=== PATIENT | female | born 1985 | race Two or more races ===

== ENCOUNTER 2018-10-02 01:25 | Emergency (ER) | payer BC, OTHER ==
[~2018-10-02] VITALS: Ht 162.6 cm; Wt 50.8 kg
[2018-10-02] MEDS ORDERED: FLUCONAZOLE 100 MG TAB PO ONE ×3 (01:45→01:59)
[2018-10-02 02:23] LABS: Basophils # (auto) 0.1 uL; Basophils % (auto) 0.7 % (0.0-2.0); Eosinophils # (auto) 0.1 uL; Hemoglobin 14.8 g/dL (12.2-16.2); Lymphocytes # (auto) 2.3 uL; White Blood Cell 12.4 10^3/uL (4.4-10.8)
[2018-10-02 02:25] LABS: Hematocrit 44.9 % (36.0-46.0); Lymphocytes % (auto) 18.7 % (10.0-50.0); Mean Corpuscular Hemoglobin 26.5 pg (28.0-32.0); Mean Corpuscular Volume 80.3 fL (80.0-100.0); Monocytes # (auto) 0.8 uL; Monocytes % (auto) 6.7 % (0.0-12.0); Neutrophils % (auto) 72.9 % (37.0-80.0); Nucleated Red Blood Cells % 0.5 %; Platelet Count (auto) 294 10^3/uL (140-450); Red Blood Cells 5.59 10^6/uL (4.0-5.20); Red Cell Distribution Width 14.2 % (11.8-14.3)
[2018-10-02 02:44] LABS: CRP High Sensitivity 0.1 mg/dL (< 0.3)
[2018-10-02 03:33] LABS: Albumin 4.3 g/dL (3.4-5.0); BUN/Creatinine Ratio 24.4; Calcium 8.8 mg/dL (8.5-10.1); Magnesium 2.1 mg/dL (1.6-2.6); Potassium 3.4 mmol/L (3.5-5.1)
[2018-10-02 03:37] LABS: Bilirubin, Total 0.2 mg/dL (0.2-1.0); Total Protein 7.2 g/dL (6.4-8.2)
[2018-10-02 04:00] VITALS: BP 112/71
== END 2018-10-02 06:11 | disposition home or self-care (01) ==
LOC: ER 01:28 → EEVIPCON 01:28 → ER 06:11
DX: K85.90 Acute pancreatitis without necrosis or infection, unspecified (principal); N20.0 Calculus of kidney; E05.90 Thyrotoxicosis, unspecified without thyrotoxic crisis or storm; E78.5 Hyperlipidemia, unspecified; Z91.030 Bee allergy status
CPT/HCPCS: 36415; 74176; 80053; 80061; 82150; 83036; 83525; 83690; 83735; 84443; 85025; 86141

== ENCOUNTER 2019-04-27 23:38 | Emergency (ER) | payer BC ==
[~2019-04-27] VITALS: Ht 162.6 cm; Wt 50.8 kg
[2019-04-28 00:05] VITALS: BP 114/84
[2019-04-28] MEDS ORDERED: KETOROLAC TROMETH 60MG/2ML VIAL IM ONE ×2 (00:30)
[2019-04-28] MEDS ORDERED: CEFTRIAXONE SODIUM 2 GM in D5W 5% 50 ML IV ONE ×3 (00:30)
[2019-04-28] MEDS ORDERED: SODIUM CHLORIDE 0.9% 1,000 ML IV ONE ×2 (00:30)
[2019-04-28] MEDS ORDERED: DexAMETHasone INJECTION 10 MG in D5W 5% 50 ML IV ONE ×3 (00:30)
[2019-04-28] MEDS ORDERED: cefTRIAXone 1GM/50ML D5W 100 ML IV ONE (00:33)
[2019-04-28] MEDS ORDERED: DexAMETHasone SOD PHOS 10MG/1ML VIAL INJ IV ONE (00:45)
== END 2019-04-28 06:54 | disposition home or self-care (01) ==
LOC: ER 23:45
DX: J32.0 Chronic maxillary sinusitis (principal); G89.18 Other acute postprocedural pain; Z91.030 Bee allergy status
CPT/HCPCS: 96365; 96368; 96372; 99283; J0696; J1100; J1885; J7030; J7060